=== PATIENT | male | born 1985 | race Caucasian/White ===

== ENCOUNTER 2018-04-15 23:57 | Emergency (ER) | payer OTHER, SELFPAY ==
[2018-04-16] MEDS ORDERED: diphenhydrAMINE INJ 50MG/ML VIAL (J1200) As Ordered (00:15)
[2018-04-16] MEDS ORDERED: HALOPERIDOL 5 MG/ML VIAL (J1630) As Ordered (00:15)
[2018-04-16] MEDS: HALOPERIDOL 5 MG/ML VIAL (J1630) IM (00:18)
[2018-04-16] MEDS: diphenhydrAMINE INJ 50MG/ML VIAL (J1200) IM (00:19)
[2018-04-16 00:46] LABS: ALBUMIN 3.9 GM/DL (3.2-5.2); ALBUMIN/GLOBULIN RATIO 1.05 (1.00-1.93); ALKALINE PHOSPHATASE 66 U/L (45-117); ALT/SGPT 122 U/L (12-78); ANION GAP 10 MEQ/L (8-16); AST/SGOT 69 U/L (7-37); BILIRUBIN,DIRECT 0.1 MG/DL (0.0-0.2); BILIRUBIN,TOTAL 0.4 MG/DL (0.2-1.0); BLOOD UREA NITROGEN 16 MG/DL (7-18); CALCIUM LEVEL 8.4 MG/DL (8.5-10.1); CARBON DIOXIDE LEVEL 24 MEQ/L (21-32); CHLORIDE LEVEL 112 MEQ/L (98-107); CPK CREATINE PHOSPHOKINASE 83 U/L (39-308); CREATININE FOR GFR 0.94 MG/DL (0.70-1.30); ETHYL ALCOHOL (ETHANOL) 0.223 % (0.000-0.010); GLOMERULAR FILTRATION RATE > 60.0 (>60); GLUCOSE, FASTING 102 MG/DL (70-100); HEMATOCRIT 41.6 % (42.0-52.0); HEMOGLOBIN 14.7 g/dl (13.5-17.5); MEAN CORPUSCULAR HEMOGLOBIN 30.2 pg (27.0-33.0); MEAN CORPUSCULAR HGB CONC 35.3 g/dl (32.0-36.5); MEAN CORPUSCULAR VOLUME 85.4 fl (80.0-96.0); PLATELET COUNT, AUTOMATED 262 10^3/uL (150-450); POTASSIUM SERUM 3.6 MEQ/L (3.5-5.1); RED BLOOD COUNT 4.87 10^6/uL (4.30-6.10); RED CELL DISTRIBUTION WIDTH 12.4 % (11.5-14.5); SALICYLATE LEVEL < 1.7 MG/DL (5.0-30.0); SODIUM LEVEL 146 MEQ/L (136-145); TOTAL PROTEIN 7.6 GM/DL (6.4-8.2); WHITE BLOOD COUNT 8.2 10^3/uL (4.0-10.0)
[2018-04-16 00:48] LABS: ACETAMINOPHEN LEVEL < 2.0 UG/ML (10.0-30.0)
[2018-04-16 02:19] LABS: AMPHETAMINES LEVEL URINE NEGATIVE (NEGATIVE); BARBITURATES URINE NEGATIVE (NEGATIVE); BENZODIAZEPINES URINE NEGATIVE (NEGATIVE); CANNABINOIDS URINE POSITIVE (NEGATIVE); COCAINE METABOLITE URINE NEGATIVE (NEGATIVE); METHADONE URINE NEGATIVE (NEGATIVE); OPIATES URINE NEGATIVE (NEGATIVE); PHENCYCLIDINE URINE NEGATIVE (NEGATIVE)
[2018-04-16] MEDS ORDERED: NORCO, ANEXSIA 5/325MG TABLET (HYDROcodone/ACETAMINOPHEN) PO (05:15)
== END 2018-04-16 08:16 | disposition home or self-care (01) ==
LOC: M ED 23:57
DX: F10.120 Alcohol abuse with intoxication, uncomplicated (principal); M54.9 Dorsalgia, unspecified; Z79.899 Other long term (current) drug therapy
CPT/HCPCS: J1200

== ENCOUNTER 2019-03-23 10:11 | Inpatient (IN) | payer OTHER ==
[~2019-03-23] VITALS: Ht 180.3 cm; Wt 84.4 kg
[~2019-03-23 10:11] MED LIST: GABA800T4; NUCY100T11
[2019-03-23 12:08] LABS: BLOOD UREA NITROGEN 15 MG/DL (7-18); CALCIUM LEVEL 8.7 MG/DL (8.5-10.1); CARBON DIOXIDE LEVEL 26 MEQ/L (21-32); CHLORIDE LEVEL 105 MEQ/L (98-107); CREATININE FOR GFR 0.78 MG/DL (0.70-1.30); GLOMERULAR FILTRATION RATE > 60.0 (>60); GLUCOSE, FASTING 72 MG/DL (70-100); POTASSIUM SERUM 4.9 MEQ/L (3.5-5.1); SODIUM LEVEL 138 MEQ/L (136-145)
[2019-03-24] MEDS ORDERED: MOM 30ML SUSPENSION UDC PO PRN (01:00)
[2019-03-24] MEDS ORDERED: IBUPROFEN 400 MG TAB PO PRN (01:00)
[2019-03-24] MEDS ORDERED: MAALOX 30 ML SUSP *UDC PO PRN (01:00)
[2019-03-24 02:37] VITALS: BP 140/86
[2019-03-24 06:29] VITALS: BP 120/71
[2019-03-24] MEDS ORDERED: NICOTINE 21MG/24HR 1 EA TRANSDERMAL TD SCH (09:00)
[2019-03-24] MEDS ORDERED: LORazepam 2 MG TAB PO PRN (09:45)
[2019-03-24] MEDS: THIAMINE 100 MG TAB PO SCH ×2 (09:54→20:11)
[2019-03-24] MEDS: FOLIC ACID 1 MG TAB PO SCH (09:54)
[2019-03-24] MEDS: MULTIVITAMINS/MINERALS THERAP 1 TAB PO SCH (09:54)
[2019-03-24] MEDS: NICOTINE POLACRILEX 2 MG GUM PO PRN ×4 (10:26→17:52)
[2019-03-24 11:24] VITALS: BP 123/85
--- NOTE | 2019-03-24 14:04 | MHHPEPDOC ---
General Date Of Admission: Mar 23, 2019 Legal Status: 9.37 Chief Complaint "I was scared I was going to harm myself or someone else." History of Present Illness HISTORY OF THE PRESENT ILLNESS: Patient is a 33 -year-old , male, with no previous psych history who was transferred to [facility] ED by [facility] due to endorsing SI/HI and AH/VH, acting very bizarre secondary to intoxication on hallucinogens (mushrooms), alcohol, cannacbis, and methamphetamine (utox pos substances and elevate bal at [facility]) causing him to call the police for help per ED. Pt in [facility] ED cooperative with staff and he has been depressed lately after he and his had an argument and she went to stay with a friend 2 days ago. Pt stated he felt his thoughts of suicide and homicide were due to his intoxication causing him to no feel like himself and marriage stress per ED. ED staff called pt's who told them that they have been for several years and she doesn't want to separate. She stated she felt that pt would benefit from inpatient stay and help with his current psychiatric status and is very supportive per ED. Psychiatric Review of Systems Depression (2 or more weeks): depressed mood, feelings of excess/guilt (excess), difficulty concentrating, suicidal thoughts Leny (4 or more days of): still with energy, distractibility, denies Psychosis: auditory hallucination, visual hallucination PTSD: denies Anxiety: situational anxiety, stressor related anxiety Anxiety/ 6 months or more of: restlessness, keyed up, difficulty concentrating, irritability Past Psychiatric History Previous Psychiatric Diagnosis: denies Previous Psychiatric Admissions: denies Suicide Attempts: denies Psychiatric Follow-up: denies Psychiatric medications: denies Past Medical History Medical Problems denies Head Injury: No Seizures: No Hospitalizations: No Surgeries: No Family Medical/Psychiatric HX Psychiatric Disorders: No Addiction: No Suicide Attemps/Completions: No Addiction History nicotine, alcohol, amphetamines, methamphetamines, other (hallucinogens (mushrooms), cannabis (utox pos)) Social History Childhood: born [place] raised in [place], [place] childhood, 2 parent home, has siblings Abuse/Trauma:denies Current Living Situation: lives with in [place] Education: high school grad Employment: odd jobs Social Support: , family Legal: denies Marital: , no kids Mental Status Examination General Appearance: well groomed, appears stated age, hospital scubs/clothing Build: average Demeanor: average, very figety Eye Contact: average Activity: average, anxious Behavior: cooperative, restless (very) Speech: clear, spontaneous, normal volume, reg/rate,rhythm,volume Mood: euthymic, anxious Mood good Affect: appropriate, congruent, anxious Thought Process: logical/linear, intact, other Thought Content (Delusions): none reported, denies SI, HI, AVH (resolved) Thought Content (Other): none reported, appropriate, other (craving substances) Thought Content (Aggressive): none reported Perception (Hallucinations): none reported Perception (Other): none reported Cognition (Impairment of): none reported Cognition(Intelligence Est.): average Oriented: Awake, Alert, Oriented times three Insight: good Judgment: Fair Psychosis: Denies (resolved ) Diagnoses 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 He denies SI/HI, AVH. States he did too many drugs and was "tripping a lot." Endorsed seeing people fighting in the street and a Hum-V (bizarre) which made him feel scared and call the police. Denies that he's craving substances but appears to be heavily (states only a cigarette) and anxious, very fidgety. States he needs a psychiatrist. States he's been sober from heroin for "a while" and used to "shoot up" (showed me track tray scares on b/l antecubitals). Agreeable to inderal 10mg tid for anxiety/increased psychomotor behavior, risks/benefits discussed. [facility] protocol to monitor for alcohol withdrawal started and aware that alcohol withdrawal can be life threatening so therefore needs to stay to monitored and treated for withdrawal pending symptoms. Denies alcohol withdrawal symptoms currently. Initial Treatment Plan 1. Patient was admitted on a 9.39 status. 2. Complete history was obtained. 3. With patients permission, family will be contacted and database will be expanded. 4. Patients medication regimen will be reviewed and changed accordingly. 5. Patient will be provided with protected environment. 6. Patient will be treated with individual, group, and milieu therapies. 7. Patient will receive supportive psych-education. 8. Discharge planning will commence immediately. 9. Outpatient follow-up treatment will be strongly recommended. 10. The initial treatment plan will focus initially on: * Depression. * Risk for suicide. * Substance abuse. 11. inderal 10mg tid, clonidine 0.1 mg q6hr (hold for bp less than 120/75) ESTIMATED LENGTH OF STAY: 5-7 DAYS. TIME SPENT COUNSELING AND COORDINATING INITIAL CARE: 60 minutes. Vital Signs Vital Signs Date Time Temp Pulse Resp B/P (MAP) Pulse Ox O2 Delivery O2 Flow Rate FiO2 03/24/19 11:24 106 123/85 03/24/19 06:29 98.0 14 03/23/19 20:18 99 Room Air Medications No Active Prescriptions or Reported Meds Allergies Coded Allergies: acetaminophen (Verified Allergy, Unknown, 03/23/19) codeine (Verified Allergy, Unknown, 03/23/19) EJRICA MARTIN DO Mar 24, 2019 1:41 pm
[2019-03-24] MEDS ORDERED: PROPRANOLOL 10 MG TAB PO ONE (14:30)
[2019-03-24] MEDS: cloNIDine 0.1 MG TAB PO SCH ×3 (14:58→23:00)
[2019-03-24 18:02] VITALS: BP 121/79
[2019-03-24] MEDS: PROPRANOLOL 10 MG TAB PO SCH (20:12)
[2019-03-24] MEDS: traZODone 50 MG TAB PO PRN (20:12)
--- NOTE | 2019-03-24 23:34 | HPEPDOC ---
General Date of Admission Mar 24, 2019 at 00:51 Date of Service: Mar 24, 2019 Chief Complaint Requested to be seen by Internal Medicine Source: Patient, Old records Exam Limitations: No limitations History of Present Illness Pt is 33 y/o M who was admitted to [facility] due to bizarre behavior sec to illicit drug use. Upon my encounter pt is awake alert oriented . pt denies any medical problem. Not on any medication. Reports no cardiac respiratory or GI condition. F/U with PCP every year. No childhood condition. Reports femoral fracture during childhood. Pt admits that he uses cocaine, ETOH and heroin in the past. 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 Home Medications No Active Prescriptions or Reported Meds Allergies Coded Allergies: acetaminophen (Verified Allergy, Unknown, 03/23/19) codeine (Verified Allergy, Unknown, 03/23/19) Past Medical History Medical History None Surgical History None Family History Significant Family History: No pertinent family hx Social History * Smoker: current smoker Alcohol: occationally Drugs: cocaine, heroin, marijuana Recent Travel/Sick Contacts: Denies: Recent travel, Recent sick contacts Psychosocial History: Decreased mood A-FIB/CHADSVASC A-FIB History Current/History of A-Fib/PAF?: No Review of Systems Constitutional: Denies: Chills, Fever, Night Sweats Eyes: Denies: Pain, Vision change ENT: Denies: Head Aches, Ear Pain, Dysphagia Skin: Denies: Rash, Lesions, Breakdown Pulmonary: Denies: Dyspnea, Cough Cardiovascular: Denies: Chest Pain, Palpitations, Orthopnea, Paroxysmal Noc. Dyspnea, Lt Headedness Gastrointestinal: Denies: Nausea, Vomiting, Abdominal Pain, Diarrhea Genitourinary: Denies: Dysuria, Frequency, Incontinence, Retention Hematologic: Denies: Bruising, Bleeding Excessively Musculoskeletal: Denies: Neck Pain, Back Pain, Joint Pain, Muscle Pain, Spasms Neurological: Denies: Weakness, Numbness, Change in speech, Confusion Psych: Reports: Mood Normal; Denies: Depression, Memory Issues Physical Examination General Exam: Positive: Alert, No Acute Distress Eye Exam: Positive: PERRLA, Conjunctiva & lids normal, EOMI; Negative: Sclera icteric ENT Exam: Positive: Atraumatic, Mucous membr. moist/pink, Pharynx Normal Neck Exam: Positive: Supple; Negative: JVD, thyromegaly Chest Exam: Positive: Clear to auscultation, Normal air movement Heart Exam: Positive: Rate Normal, Regular Rhythm, Normal S1, Normal S2; Negative: Murmurs, Rubs Telemetry: Positive: No significant arrhythmia Abdomen Exam: Positive: Normal bowel sounds, Soft; Negative: Tenderness, Hepatospenomegaly Extremity Exam: Positive: Normal pulses; Negative: Clubbing, Cyanosis, Edema Skin Exam: Positive: Nl turgor and temperature; Negative: Breakdown, Lesion Neuro Exam: Positive: Normal Gait, Normal Speech, Cranial Nerves 3-12 NL, Reflexes 2+ Psych Exam: Positive: Mental status NL, Mood NL, Oriented x 3 Vital Signs Vital Signs Date Time Temp Pulse Resp B/P (MAP) Pulse Ox O2 Delivery O2 Flow Rate FiO2 03/24/19 23:00 109/56 03/24/19 20:12 72 03/24/19 18:02 99.7 16 03/23/19 20:18 99 Room Air Plan / VTE VTE Prophylaxis Ordered?: No VTE Exclusion Mechanical Proph: Low Risk for VTE Plan Plan Pt is a young healthy male with Hx of polysubstance abuse referred from [facility] for medical evaluation. Pt with no medical condition, Recommend: annual PCP f/u ETOH, Smoking cessation counseling psychosocial support Nicotine Patch if agreeable Diet/physical activity Thank you for the consult. TAMEKA CARDONA MD Mar 24, 2019 23:34
[2019-03-25] MEDS: cloNIDine 0.1 MG TAB PO SCH ×4 (06:00→23:44)
[2019-03-25 06:32] VITALS: BP 114/78
[2019-03-25 08:12] VITALS: BP 114/78
[2019-03-25] MEDS: PROPRANOLOL 10 MG TAB PO SCH ×3 (08:16→20:15)
[2019-03-25] MEDS: FOLIC ACID 1 MG TAB PO SCH (08:16)
[2019-03-25] MEDS: THIAMINE 100 MG TAB PO SCH ×2 (08:16→20:15)
[2019-03-25] MEDS: MULTIVITAMINS/MINERALS THERAP 1 TAB PO SCH (08:16)
[2019-03-25] MEDS: NICOTINE POLACRILEX 2 MG GUM PO PRN ×4 (09:27→17:33)
[2019-03-25 17:55] VITALS: BP 118/78
[2019-03-25 18:02] VITALS: BP 118/78
--- NOTE | 2019-03-25 19:22 | MHIPNPDOC ---
[facility] Progress Note Progress Note DATE OF SERVICE: 03/25/19 HISTORY: Patient is a 33 -year-old , male, with no previous psych history who was transferred to [facility] ED by [facility] due to endorsing SI/HI and AH/VH, acting very bizarre secondary to intoxication on hallucinogens (mushrooms), alcohol, cannacbis, and methamphetamine (utox pos substances and elevate bal at [facility]) causing him to call the police for help per ED. Pt in [facility] ED cooperative with staff and he has been depressed lately after he and his had an argument and she went to stay with a friend 2 days ago. Pt stated he felt his thoughts of suicide and homicide were due to his intoxication causing him to no feel like himself and marriage stress per ED. ED staff called pt's who told them that they have been for several years and she doesn't want to separate. She stated she felt that pt would benefit from inpatient stay and help with his current psychiatric status and is very supportive per ED. VITAL SIGNS: See below. NEW TEST RESULTS: See below CURRENT MEDICATIONS: See below. MENTAL STATUS EXAMINATION: General Appearance: well groomed, appears stated age, hospital scubs/clothing Build: average Demeanor: average, very figety Eye Contact: average Activity: average, anxious Behavior: cooperative, restless (very) Speech: clear, spontaneous, normal volume, reg/rate,rhythm,volume Mood: anxious Mood "a little bit better, although I don't remember a lot of things" Affect: anxious Thought Process: logical,linear Thought Content (Delusions): none reported, denies SI, HI, AVH (resolved) Thought Content (Other): none reported, appropriate, denies SI/HI bu Thought Content (Aggressive): none reported Perception (Hallucinations): none reported Perception (Other): none reported Cognition (Impairment of): none reported Cognition(Intelligence Est.): average Oriented: Awake, Alert, Oriented times three Insight: good Judgment: Fair Psychosis: Denies (resolved ) Diagnoses 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 He got into fights with different people, including his GF. He seems to be sedated, he has a slurred speech and at the beginning he was guarded, later on, he eased up a little and started talking about how his called the police on him. He says he was using mushrooms before he was taken to the Hospital and he thinks that has something to do with him being aggressive. MANAGEMENT PLAN: As per Dr. Anders TIME SPENT: 20 minutes. Vital Signs Vital Signs Date Time Temp Pulse Resp B/P (MAP) Pulse Ox O2 Delivery O2 Flow Rate FiO2 03/25/19 18:02 99.0 73 16 118/78 (91) 03/23/19 20:18 99 Room Air Current Medications Current Medications Al Hydrox/Mg Hydrox/Simethicone (Mylanta) 30 ml Q4HP PRN PO HEARTBURN/INDIGESTION; Start 03/24/19 at 01:00 Clonidine HCl (Catapres) 0.1 mg Q6H PO Last administered on 03/24/19at 17:52; Start 03/24/19 at 12:00 Folic Acid (Folic Acid) 1 mg DAILY PO Last administered on 03/25/19at 08:16; Start 03/24/19 at 09:00 Home Med (Med Rec Complete!) ASDIRECTED XX ; Start 03/23/19 at 22:30; Stop 03/23/19 at 22:30; Status DC Ibuprofen (Advil) 400 mg Q6HP PRN PO PAIN; Start 03/24/19 at 01:00 Lorazepam (Ativan) 2 mg ASDIRECTED PRN PO SEE PROTOCOL; Start 03/24/19 at 09:45 Magnesium Hydroxide (Milk Of Magnesia) 30 ml DAILYPRN PRN PO CONSTIPATION; Start 03/24/19 at 01:00 Multivitamins (Theragram-M) 1 tab DAILY PO Last administered on 03/25/19at 08:16; Start 03/24/19 at 09:00 Nicotine (Nicoderm Cq 21mg) 1 patch DAILY TD ; Start 03/24/19 at 09:00; Stop 03/24/19 at 10:17; Status DC Nicotine (Nicorette) 2 mg Q2HP PRN PO SMOKING CESSATION Last administered on 03/25/19at 17:33; Start 03/24/19 at 10:15 Propranolol HCl (Inderal) 10 mg TID PO Last administered on 03/25/19at 16:01; Start 03/24/19 at 21:00 Thiamine HCl (Thiamine HCl) 100 mg BID PO Last administered on 03/25/19at 08:16; Start 03/24/19 at 09:00; Stop 03/26/19 at 21:01 Trazodone HCl (Desyrel) 50 mg QHSP PRN PO INSOMNIA Last administered on 03/24/19at 20:12; Start 03/24/19 at 01:00 Allergies Coded Allergies: acetaminophen (Verified Allergy, Unknown, 03/23/19) codeine (Verified Allergy, Unknown, 03/23/19) BILLY MOSHER MD Mar 25, 2019 19:10
[2019-03-25] MEDS: traZODone 50 MG TAB PO PRN (20:10)
[2019-03-25 21:00] VITALS: BP 122/67
[2019-03-26] MEDS: cloNIDine 0.1 MG TAB PO SCH ×4 (06:00→23:09)
[2019-03-26 06:42] VITALS: BP 117/63
[2019-03-26] MEDS: NICOTINE POLACRILEX 2 MG GUM PO PRN ×6 (07:21→20:16)
[2019-03-26] MEDS: FOLIC ACID 1 MG TAB PO SCH (08:13)
[2019-03-26] MEDS: MULTIVITAMINS/MINERALS THERAP 1 TAB PO SCH (08:13)
[2019-03-26] MEDS: THIAMINE 100 MG TAB PO SCH ×2 (08:13→20:16)
[2019-03-26] MEDS: PROPRANOLOL 10 MG TAB PO SCH ×3 (08:13→20:17)
[2019-03-26 08:14] VITALS: BP 132/65
[2019-03-26 15:46] VITALS: BP 110/72
[2019-03-26 18:03] VITALS: BP 113/67
[2019-03-26] MEDS: traZODone 50 MG TAB PO PRN (20:16)
--- NOTE | 2019-03-26 22:16 | MHIPNPDOC ---
[facility] Progress Note Progress Note DATE OF SERVICE: 03/26/19 HISTORY: Patient is a 33 -year-old , male, with no previous psych history who was transferred to [facility] ED by [facility] due to endorsing SI/HI and AH/VH, acting very bizarre secondary to intoxication on hallucinogens (mushrooms), alcohol, cannacbis, and methamphetamine (utox pos substances and elevate bal at [facility]) causing him to call the police for help per ED. Pt in [facility] ED cooperative with staff and he has been depressed lately after he and his had an argument and she went to stay with a friend 2 days ago. Pt stated he felt his thoughts of suicide and homicide were due to his intoxication causing him to no feel like himself and marriage stress per ED. ED staff called pt's who told them that they have been for several years and she doesn't want to separate. She stated she felt that pt would benefit from inpatient stay and help with his current psychiatric status and is very supportive per ED. VITAL SIGNS: See below. NEW TEST RESULTS: See below CURRENT MEDICATIONS: See below. MENTAL STATUS EXAMINATION: General Appearance: well groomed, appears stated age, hospital scubs/clothing Build: average Demeanor: average, calm Eye Contact: avoidant Activity: average Behavior: cooperative, calm today Speech: clear, spontaneous, normal volume, reg/rate,rhythm,volume Mood: anxious Mood "fine" Affect: less anxious than yesterday, constricted Thought Process: logical,linear Thought Content (Delusions): none reported, denies SI, HI, AVH Thought Content (Other): none reported, appropriate, denies SI/HI Thought Content (Aggressive): none reported Perception (Hallucinations): none reported Perception (Other): none reported Cognition (Impairment of): none reported Cognition(Intelligence Est.): average Oriented: Awake, Alert, Oriented times three Insight: good Judgment: Fair Psychosis: Denies Diagnoses 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 He still doesn't have a clear recollection of all the events that lead to his admission. He is not insightful about his substance abuse, he tries to minimize it. He has been asking about being discharged and tw has told him that he has to discuss that with Dr. Anders. MANAGEMENT PLAN: As per Dr. Anders Vital Signs Vital Signs Date Time Temp Pulse Resp B/P (MAP) Pulse Ox O2 Delivery O2 Flow Rate FiO2 03/26/19 20:17 66 113/67 03/26/19 18:03 99.0 16 03/23/19 20:18 99 Room Air Current Medications Current Medications Al Hydrox/Mg Hydrox/Simethicone (Mylanta) 30 ml Q4HP PRN PO HEARTBURN/INDIGESTION; Start 03/24/19 at 01:00 Clonidine HCl (Catapres) 0.1 mg Q6H PO Last administered on 03/24/19at 17:52; Start 03/24/19 at 12:00 Folic Acid (Folic Acid) 1 mg DAILY PO Last administered on 03/26/19at 08:13; Start 03/24/19 at 09:00 Home Med (Med Rec Complete!) ASDIRECTED XX ; Start 03/23/19 at 22:30; Stop 03/23/19 at 22:30; Status DC Ibuprofen (Advil) 400 mg Q6HP PRN PO PAIN; Start 03/24/19 at 01:00 Lorazepam (Ativan) 2 mg ASDIRECTED PRN PO SEE PROTOCOL; Start 03/24/19 at 09:45 Magnesium Hydroxide (Milk Of Magnesia) 30 ml DAILYPRN PRN PO CONSTIPATION; Start 03/24/19 at 01:00 Multivitamins (Theragram-M) 1 tab DAILY PO Last administered on 03/26/19at 08:13; Start 03/24/19 at 09:00 Nicotine (Nicoderm Cq 21mg) 1 patch DAILY TD ; Start 03/24/19 at 09:00; Stop 03/24/19 at 10:17; Status DC Nicotine (Nicorette) 2 mg Q2HP PRN PO SMOKING CESSATION Last administered on 03/26/19at 20:16; Start 03/24/19 at 10:15 Propranolol HCl (Inderal) 10 mg TID PO Last administered on 03/26/19at 20:17; Start 03/24/19 at 21:00 Thiamine HCl (Thiamine HCl) 100 mg BID PO Last administered on 03/26/19at 20:16; Start 03/24/19 at 09:00; Stop 03/26/19 at 21:01; Status DC Trazodone HCl (Desyrel) 50 mg QHSP PRN PO INSOMNIA Last administered on 03/26/19at 20:16; Start 03/24/19 at 01:00 Allergies Coded Allergies: acetaminophen (Verified Allergy, Unknown, 03/23/19) codeine (Verified Allergy, Unknown, 03/23/19) BILLY MOSHER MD Mar 26, 2019 22:16
[2019-03-27] MEDS: cloNIDine 0.1 MG TAB PO SCH ×2 (06:00→11:43)
[2019-03-27 06:35] VITALS: BP 138/73
[2019-03-27 08:09] VITALS: BP 138/73
[2019-03-27] MEDS: NICOTINE POLACRILEX 2 MG GUM PO PRN ×2 (08:45→11:42)
[2019-03-27] MEDS: PROPRANOLOL 10 MG TAB PO SCH (08:45)
[2019-03-27] MEDS: MULTIVITAMINS/MINERALS THERAP 1 TAB PO SCH (08:45)
[2019-03-27] MEDS: FOLIC ACID 1 MG TAB PO SCH (08:45)
[2019-03-27] MEDS ORDERED: TRAZ-252 PO (09:15)
[2019-03-27] MEDS ORDERED: PROP10TA56 PO (09:15)
--- NOTE | 2019-03-27 09:15 | MHDSPDOC ---
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 Pt in [facility] ED cooperative with staff and he has been depressed lately after he and his had an argument and she went to stay with a friend 2 days ago. Pt stated he felt his thoughts of suicide and homicide were due to his intoxication causing him to no feel like himself and marriage stress per ED. ED staff called pt's who told them that they have been for several years and she doesn't want to separate. She stated she felt that pt would benefit from inpatient stay and help with his current psychiatric status and is very supportive per ED. CONSULTANTS INVOLVED: none TREATMENT AND PROGRESS ON THE UNIT : Pt was admitted to [facility], seen for psychiatric assessment and started on inderal 10mg tid. He was provided trazodone 50mg qhs prn insomnia. Pt found his medications beneficial and tolerated them well. He attended groups daily during his stay. His symptoms improved with treatment. On day of discharge he denied depression, anxiety, insomnia, SI/HI, hallucinations, delusions. He was discharged home with follow- up at [facility] and [facility].. He felt safe for discharge. DISCHARGE ASSESSMENT: Pt seen and states that his mood is good and he's looking forward to going home today. States he slept well last night. Feels he is tolerating his medications and they're beneficial. He is attending groups and finding them helpful. He denies depression, anxiety, insomnia, SI/HI, hallucinations, delusions. Pt feels safe to be discharge home. MENTAL STATUS EXAMINATION ON DISCHARGE: General Appearance: well groomed, appears stated age, hospital scrubs/clothing Build: average Demeanor: average, calm Eye Contact: good Activity: average Behavior: cooperative, calm today Speech: clear, spontaneous, normal volume, reg/rate,rhythm,volume Mood: euthymic, full Mood "good" Affect: euthymic, full Thought Process: logical,linear Thought Content (Delusions): none reported, denies SI, HI, AVH Thought Content (Other): none reported, appropriate, denies SI/HI Thought Content (Aggressive): none reported Perception (Hallucinations): none reported Perception (Other): none reported Cognition (Impairment of): none reported Cognition(Intelligence Est.): average Oriented: Awake, Alert, Oriented times three Insight: good Judgment: good Psychosis: Denies MEDICATIONS ON DISCHARGE: inderal 10mg tid PLAN/FOLLOWUP ARRANGEMENTS: D/c home with follow-up at [facility]. The amount of time spent in the coordination of care for this patient was approximately 30 minutes. Vital Signs/I&Os Vital Signs Date Time Temp Pulse Resp B/P (MAP) Pulse Ox O2 Delivery O2 Flow Rate FiO2 03/27/19 08:45 70 113/61 03/27/19 06:35 98.4 16 03/23/19 20:18 99 Room Air Medications No Active Prescriptions or Reported Meds Allergies Coded Allergies: acetaminophen (Verified Allergy, Unknown, 03/23/19) codeine (Verified Allergy, Unknown, 03/23/19) JERICA MARTIN DO Mar 27, 2019 9:15 am
[2019-03-27 11:43] VITALS: BP 102/50
== END 2019-03-27 11:55 | disposition home or self-care (01) | DRG 773 ==
LOC: M ED 10:11 → M ED INP 03-24 00:51 → M PSY 03-24 01:47
PROVIDERS: ADMIT Psychiatry & Neurology Psychiatry; ATTEND Psychiatry & Neurology Psychiatry
DX: F19.94 Other psychoactive substance use, unspecified with psychoactive substance-induced mood disorder (principal); I69.951 Hemiplegia and hemiparesis following unspecified cerebrovascular disease affecting right dominant side; F11.90 Opioid use, unspecified, uncomplicated; F10.10 Alcohol abuse, uncomplicated; F12.90 Cannabis use, unspecified, uncomplicated; Z88.5 Allergy status to narcotic agent; Z88.6 Allergy status to analgesic agent; F17.200 Nicotine dependence, unspecified, uncomplicated

== ENCOUNTER → 2023-04-27 | Outpatient (CLI) | payer OTHER ==
[~2023-04-27] MED LIST changes: +PROP10TA56 PO; +TRAZ-252 PO
[2023-04-27 14:29] LABS: BASO # 0.1 10^3/uL (0.0-0.2); BASO % 0.5 % (0.0-1.0); EOS # 0.3 10^3/uL (0.0-0.5); EOS % 2.9 % (0.0-3.0); HEMOGLOBIN 14.2 g/dl (13.5-17.5); LYMPH # 3.5 10^3/uL (1.5-5.0); LYMPH % 37.4 % (24.0-44.0); MEAN CORPUSCULAR HEMOGLOBIN 28.8 pg (27.0-33.0); MEAN CORPUSCULAR VOLUME 87.2 fl (80.0-96.0); MONO # 1.1 10^3/uL (0.0-0.8); MONO % 11.2 % (2.0-8.0); NEUTROPHILS # 4.5 10^3/uL (1.5-8.5); NEUTROPHILS % 47.7 % (36.0-66.0); PLATELET COUNT, AUTOMATED 188 10^3/uL (150-450); RED BLOOD COUNT 4.93 10^6/uL (4.30-6.10); WHITE BLOOD COUNT 9.5 10^3/uL (4.0-10.0)
[2023-04-27 14:44] LABS: ALBUMIN 3.4 G/DL (3.2-5.2); ALKALINE PHOSPHATASE 62 U/L (46-116); ALT/SGPT < 9 U/L (7.0-40); AST/SGOT < 8 U/L (<34); BILIRUBIN,TOTAL 0.4 MG/DL (0.3-1.2); BLOOD UREA NITROGEN 14 MG/DL (9-23); CALCIUM LEVEL 8.9 MG/DL (8.5-10.1); CARBON DIOXIDE LEVEL 30 MMOL/L (20-31); CHLORIDE LEVEL 104 MMOL/L (98-107); CREATININE FOR GFR 0.66 MG/DL (0.70-1.30); GLOMERULAR FILTRATION RATE > 60.0 (>60); GLUCOSE, FASTING 89 MG/DL (60-100); POTASSIUM SERUM 4.5 MMOL/L (3.5-5.1); SODIUM LEVEL 141 MMOL/L (136-145); TOTAL PROTEIN 6.9 G/DL (5.7-8.2)
[2023-04-27 14:45] LABS: HEPATITIS B SURFACE ANTIBODY POSITIVE (POSITIVE)
[2023-04-27 14:58] LABS: HEPATITIS B SURFACE ANTIGEN NEGATIVE (NEGATIVE)
[2023-04-27 15:11] LABS: HIV 1&2 SCREEN NEGATIVE (NEGATIVE)
[2023-05-01 00:07] LABS: HEPATITIS A IgG TOTAL Positive (Negative); HEPATITIS B CORE ANTIBODY IGG Negative (Negative); HEPATITIS C QUANTITATION HCV Not Detected IU/mL (.)
== END ==
LOC: M PLALAB 09:25
PROVIDERS: ATTEND Internal Medicine Infectious Disease
DX: B81.2 Trichostrongyliasis (principal)